=== PATIENT | female | born 1995 | race Two or more races ===

== ENCOUNTER → 2024-05-04 | Outpatient (REF) | payer OTHER | LOC: M SFHCWAGY 12:07 | PROVIDERS: ATTEND Obstetrics & Gynecology | DX: R82.90 Unspecified abnormal findings in urine (principal) ==

== ENCOUNTER → 2024-05-18 | Outpatient (REF) | payer OTHER | LOC: M SFHCWAGY 12:22 | PROVIDERS: ATTEND Specialist | DX: Z34.83 Encounter for supervision of other normal pregnancy, third trimester (principal) ==

== ENCOUNTER 2024-06-16 06:34 | Inpatient (IN) | payer OTHER ==
[~2024-06-16] VITALS: Ht 154.9 cm; Wt 93.8 kg
[2024-06-16] VITALS (19 sets, daily range): BP systolic 116–178; BP diastolic 56–89
[2024-06-16 08:41] LABS: HEMOGLOBIN 13.4 g/dl (12.0-15.5); MEAN CORPUSCULAR HEMOGLOBIN 27.8 pg (27.0-33.0); MEAN CORPUSCULAR HGB CONC 32.7 g/dl (32.0-36.5); MEAN CORPUSCULAR VOLUME 85.1 fl (80.0-96.0); PLATELET COUNT, AUTOMATED 243 10^3/uL (150-450); RED BLOOD COUNT 4.82 10^6/uL (4.00-5.40); WHITE BLOOD COUNT 15.6 10^3/uL (4.0-10.0)
[2024-06-16] MEDS ORDERED: PRENTAB9 PO (09:07)
[2024-06-16] MEDS ORDERED: HOME MED LIST COMPLETE! XX SCH (09:10)
[2024-06-16] MEDS: PROMETHAZINE 25MG/ML 1ML VIAL IV ONE (09:37)
[2024-06-16] MEDS: BUTORPHANOL 2 MG/ML 1ML VIAL IV ONE (09:37)
[2024-06-16] MEDS ORDERED: LIDOCAINE 1% MDV 20ML VIAL INFIL PRN (14:15)
[2024-06-16] MEDS ORDERED: TRANEXAMIC ACID INJection 1,000 MG in NS 100 ML IV PRN (14:15)
[2024-06-16] MEDS ORDERED: METHYLERGONOVINE MALEATE 0.2MG/ML 1ML VIAL IM PRN (14:15)
[2024-06-16] MEDS ORDERED: OXYTOCIN DRIP 30 UNITS in IV 1 EA IV PRN (14:15)
[2024-06-16] MEDS: miSOPROStol 50MCG 1/2 TABLET PO ONE (14:46)
[2024-06-16] MEDS ORDERED: NALOXONE INJ 0.4MG/1ML VIAL IV PRN (18:55)
[2024-06-16] MEDS ORDERED: ePHEDrine SULFATE 25 MG/5 ML(5MG/ML) SYRINGE IVP PRN (18:55)
[2024-06-16] MEDS ORDERED: EPIDURAL/PCA KEYS XX PRN (18:55)
[2024-06-16] MEDS ORDERED: ONDANSETRON 4MG 2ML VIAL IV PRN (18:55)
[2024-06-16] MEDS ORDERED: diphenhydrAMINE 50MG/ML VIAL IV PRN (18:55)
[2024-06-16] MEDS ORDERED: LR 500 ML IV PRN (18:55)
[2024-06-17] VITALS (15 sets, daily range): BP systolic 100–143; BP diastolic 51–84; O2SAT 98
[2024-06-17] MEDS: FENTANYL/ROPIVACAINE/NACL BAG 100 ML EPIDURAL SCH (03:02)
[2024-06-17 04:30] LABS: CORD GAS ABE A -7.5; CORD GAS HCO3 A 17.3 MMOL/L; CORD GAS HCO3 V 17.3 MMOL/L; CORD GAS O2 SAT A 63.2 %; CORD GAS O2 SAT V 40.4 %; CORD GAS PCO2 A 33.8 mmHg; CORD GAS PH A 7.328 UNITS; CORD GAS PH V 7.266 UNITS; CORD GAS PO2 A 26.4 mmHg; CORD GAS PO2 V 19.6 mmHg; CORD GAS SBC A 17.7 MMOL/L; CORD GAS SBC V 16.2 MMOL/L; CORD GAS TCO2 A 18.4 MMOL/L; CORD GAS TCO2 V 18.5 MMOL/L
[2024-06-17] MEDS ORDERED: ANUSOL HC CREAM 30GM TOP PRN (04:55)
[2024-06-17] MEDS ORDERED: DOCUSATE SODIUM 100MG CAPSULE PO PRN (04:55)
[2024-06-17] MEDS ORDERED: ACETAMINOPHEN 325 MG TAB PO PRN (04:55)
[2024-06-17] MEDS ORDERED: CALCIUM CARBONATE 500 MG CHEW U/D PO PRN (04:55)
[2024-06-17] MEDS ORDERED: METHYLERGONOVINE MALEATE 0.2 MG TAB PO PRN (04:55)
[2024-06-17] MEDS ORDERED: IBUPROFEN 600MG TAB PO PRN (04:55)
[2024-06-17] MEDS ORDERED: MOM 30ML SUSPENSION UDC PO PRN (04:55)
[2024-06-17] MEDS ORDERED: OXYTOCIN DRIP 30 UNITS in IV 1 EA IV SCH (04:55)
[2024-06-17] MEDS: IBUPROFEN 800 MG TAB PO PRN (07:44)
[2024-06-17] MEDS: DIBUCAINE 1% OINTMENT 30GM TOP PRN (07:44)
[2024-06-17] MEDS: PRENATAL VITAMINS CHEWABLE TABLET PO SCH (07:44)
[2024-06-18] MEDS: ACETAMINOPHEN 500 MG TAB PO PRN (02:53)
[2024-06-18 06:00] VITALS: BP 115/67; O2SAT 98
[2024-06-18] MEDS: RHOGAM 300MCG (1500IU) INJ IM SCH (07:23)
[2024-06-18] MEDS: FLUZONE VACCINE TRIVALENT PF(2024-25) 0.5ML SYRINGE IM.IMMUN ONE (13:08)
[2024-06-18] MEDS ORDERED: IBUP80TA PO (15:54)
[2024-06-18] MEDS ORDERED: ACET-683 PO (15:54)
[2024-06-19] MEDS ORDERED: MEASLES,MUMPS,RUBELLA VACCINE INJ (MMR-II) SC.IMMUN ONE (09:00)
== END 2024-06-18 16:10 | disposition home or self-care (01) | DRG 807 ==
LOC: M LDO 06:34 → M LDI 12:24 → M OBS 06-17 07:35
PROVIDERS: ADMIT Obstetrics & Gynecology; ATTEND Obstetrics & Gynecology
PROC: 10D07Z6 Extraction of Products of Conception, Vacuum, Via Natural or Artificial Opening (ICD-10-PCS; principal; 2024-06-17)
DX: O75.81 Maternal exhaustion complicating labor and delivery (principal); Z37.0 Single live birth; Z3A.39 39 weeks gestation of pregnancy

== ENCOUNTER → 2024-10-07 | Outpatient (REF) | payer OTHER ==
[~2024-10-07] MED LIST: ACET-683 PO; IBUP80TA PO; PRENTAB9 PO
[2024-10-10 16:36] LABS: HPV APTIMA Not Detected (Not Detected)
== END ==
LOC: M SFHCWAGY 14:51
PROVIDERS: ATTEND Obstetrics & Gynecology
DX: Z12.4 Encounter for screening for malignant neoplasm of cervix (principal); R87.619 Unspecified abnormal cytological findings in specimens from cervix uteri